=== PATIENT | male | born 1990 | race Caucasian/White ===

== ENCOUNTER 2023-07-27 02:15 | Emergency (ER) | payer MEDICAID, OTHER ==
[~2023-07-27] VITALS: Ht 172.7 cm; Wt 65.9 kg
[~2023-07-27 02:15] MED LIST: NO HOME MEDS
[2023-07-27 02:34] VITALS: BP 120/70; PULSE 69; RESP 16; TEMP 98.3; O2SAT 97
[2023-07-27] MEDS ORDERED: AMOX-117 PO (02:39)
== END 2023-07-27 02:49 | disposition home or self-care (01) ==
LOC: ER 02:15
DX: K08.89 Other specified disorders of teeth and supporting structures (principal); F12.90 Cannabis use, unspecified, uncomplicated; Z91.041 Radiographic dye allergy status; Z79.2 Long term (current) use of antibiotics
CPT/HCPCS: 99283